=== PATIENT | male | born 1990 | race Caucasian/White ===

== ENCOUNTER 2018-05-05 13:40 | Emergency (ER) | payer OTHER ==
[2018-05-05] MEDS ORDERED: NS 500 ML IV ONE (13:59)
[2018-05-05 14:19] LABS: PLATELET COUNT 317 10^3/uL (150-400)
--- NOTE | 2018-05-05 14:39 | EDPHY ---
H & P Stated Complaint: Chest tightness and SOB x ~2 hours - Medical/Surgical History Hx Asthma: No Hx Chronic Respiratory Disease: No Hx Diabetes: No Hx Cardiac Disease: No Hx Renal Disease: No Hx Cirrhosis: No Hx Alcoholism: No Hx HIV/AIDS: No Hx Splenectomy or Spleen Trauma: No Other PMH: denies - Social History Smoking Status: Never smoked Time Seen by Provider: 05/05/18 13:50 HPI/ROS: CHIEF COMPLAINT: Chest pain HISTORY OF PRESENT ILLNESS: 27-year-old generally healthy male complaining of chest pain since this morning approximately 8:30 a.m.. Pain started while he was seated at his computer. Pain is described as a dull midsternal ache without radiation with associated dyspnea. No syncope or near syncope. No back or flank pain. Yesterday when he was hiking he felt nausea, fatigue and had episode of diarrhea. His girlfriend has been sick recently with gastroenteritis like symptoms. PRIMARY CARE PROVIDER: REVIEW OF SYSTEMS: 10 systems reviewed and negative with the exception of the elements mentioned in the history of present illness PAST MEDICAL & SURGICAL HISTORY: No pertinent medical or surgical history SOCIAL HISTORY:Denies alcohol or drug use. Nonsmoker. No cocaine use. FAMILY HISTORY: No family history of premature coronary artery disease or sudden unexplained PHYSICAL EXAM (Prior to examination, patient consented to physical exam, hands were washed and my usual and customary physical exam procedures followed) 1) GENERAL: Well-developed, well-nourished, alert and oriented. Appears to be in no acute distress. 2) HEAD: Normocephalic, atraumatic 3) HEENT: Pupils equal, round, reactive to light bilaterally. Sclera anicteric. Nasopharynx, oropharynx, clear, no lesions. Moist Mucous membranes. 4) NECK: Full range of motion, no meningeal signs. No carotid bruit 5) LUNGS: Clear auscultation bilaterally, no wheezes, no rhonchi, no retractions. No crepitus. 6) HEART: Regular rate and rhythm, no murmur, no heave, no gallop. 7) ABDOMEN: No guarding, no rebound, no focal tenderness, negative McBurney's, negative Grande's, negative Rovsing's, negative peritoneal sign, negative Homans no palpable cord 8) MUSCULOSKELETAL: Moving all extremities, no focal areas of tenderness, no obvious trauma. No peripheral edema or discoloration. 9) BACK: No CVA tenderness, no midline vertebral tenderness, no fluctuance, no step-off, no obvious trauma, no visual or palpable abnormality. 10) SKIN: No rash, no petechiae. 11) Psychiatric: Patient is oriented X 3, there is no agitation. DIFFERENTIAL DIAGNOSIS: In no particular order, including but not limited to myocardial ischemia, pulmonary embolus, chest wall pain, pleural inflammation and pulmonary infectious causes. (Brian Swenson) Constitutional: Initial Vital Signs Temperature (C) 36.7 C 05/05/18 13:42 Heart Rate 88 05/05/18 13:42 Respiratory Rate 16 05/05/18 13:42 Blood Pressure 110/71 05/05/18 13:42 O2 Sat (%) 98 05/05/18 13:42 O2 Delivery Mode Room Air Allergies/Adverse Reactions: No Known Allergies Allergy (Unverified 05/05/18 13:41) Home Medications: Medication Instructions Recorded NK [No Known Home Meds] 05/05/18 Medical Decision Making - Diagnostics Imaging Results: Images reviewed myself (Brian Swenson) ED Course/Re-evaluation: Patient was re-evaluated with serial examinations most recently at 3:20 p.m.. He is given GI cocktail and remains symptomatic. . The patient has a 0 heart pathway score, negative perc criteria, low pretest suspicion for PE. Doubt cardiac or pulmonary pathology. We discussed possible costochondritis etiology. At this time I do not think that further diagnostic studies are indicated. I think the patient can be discharged. Recommend close follow-up. He feels comfortable being discharged. All questions and concerns addressed by myself. Care of patient under supervision of secondary supervising physician Dr Durand (Brian Swenson) - Data Points Laboratory Results: Laboratory Results 05/05/18 14:09 05/05/18 14:09 Medications Given: Discontinued Medications Al Hydroxide/Mg Hydroxide (Maalox Susp) 30 ml PO ONCE ONE Stop: 05/05/18 14:41 Last Admin: 05/05/18 14:49 Dose: 30 ml Hyoscyamine Sulfate (Levsin, Hyomax-Sl) 0.25 mg PO ONCE ONE Stop: 05/05/18 14:41 Last Admin: 05/05/18 14:49 Dose: 0.25 mg Sodium Chloride (Ns) 500 mls @ 1,000 mls/hr IV EDNOW ONE PRN Reason: Protocol Stop: 05/05/18 14:28 Last Admin: 05/05/18 14:08 Dose: 500 mls Lidocaine (Lidocaine 2% Viscous) 15 ml PO ONCE ONE Stop: 05/05/18 14:41 Last Admin: 05/05/18 14:49 Dose: 15 ml Point of Care Test Results: Chemistry 05/05/18 14:13 POC Troponin I 0.00 ng/mL ng/mL (0.00-0.08) Departure - Departure Disposition: Home, Routine, Self-Care Clinical Impression: Chest pain Condition: Good Instructions: Chest Pain (ED) Additional Instructions: Seek medical attention if you develop new or worsening chest pain, if you develop new or worsening shortness of breath, or any other symptoms that concern you. Referrals: Efren Motta MD [Medical Doctor] - As per Instructions
[2018-05-05] MEDS ORDERED: MAG HYDROX/AL HYDROX/SIMETH 30 ML UDCUP PO ONE (14:40)
[2018-05-05] MEDS ORDERED: HYOSCYAMINE SULFATE 0.125 MG TAB PO ONE (14:40)
[2018-05-05] MEDS ORDERED: LIDOCAINE 2% VISCOUS 15 ML UDCUP PO ONE (14:40)
[2018-05-05 15:45] VITALS: BP 144/93
--- NOTE | 2018-05-10 20:22 | CPEKG ---
Test Reason : OPEN Blood Pressure : / mmHG Vent. Rate : 082 BPM Atrial Rate : 084 BPM P-R Int : 168 ms QRS Dur : 082 ms QT Int : 333 ms P-R-T Axes : 056 -07 021 degrees QTc Int : 389 ms Sinus rhythm Confirmed by Rob Lopez ([id number]) on 05/10/2018 8:21:36 PM Referred By: Confirmed By:Rob Lopez
== END 2018-05-05 15:45 | disposition home or self-care (01) ==
DX: R07.9 Chest pain, unspecified (principal); E86.9 Volume depletion, unspecified
CPT/HCPCS: 84484-PO